=== PATIENT | female | born 1995 | race African-American/Black ===

== ENCOUNTER 2017-06-08 03:11 | Emergency (ER) | payer OTHER ==
[2017-06-08 04:50] LABS: ADD MAN DIFF? NO
[2017-06-08 04:52] LABS: WHITE BLOOD COUNT 6.5 10^3/ul (4.8-10.8)
[2017-06-08 04:52] LABS: BASOPHIL # 0.1 10^3/ul (0.0-0.1); BASOPHILS % 0.9 % (0.0-2.0); EOSINOPHILS # 0.2 10^3/ul (0.0-0.5); EOSINOPHILS % 2.9 % (0.0-7.0); HEMATOCRIT 32.5 % (37.0-47.0); HEMOGLOBIN 11.1 g/dl (12.0-16.0); LYMPHOCYTES # 0.8 10^3/ul (0.8-2.9); LYMPHOCYTES % 12.7 % (18.0-55.0); MEAN CORPUSCULAR HEMOGLOBIN 26.5 pg (29.0-33.0); MEAN CORPUSCULAR HGB CONC 34.2 g/dl (32.0-37.0); MEAN CORPUSCULAR VOLUME 77.6 fl (72.0-104.0); MEAN PLATELET VOLUME 12.4 fl (7.4-10.4); MONOCYTE # 0.5 10^3/ul (0.3-0.9); MONOCYTES % 7.8 % (0.0-13.0); NEUTROPHIL # 4.9 10^3/ul (1.6-7.5); NEUTROPHILS % 75.4 % (30.0-74.0); PLATELET COUNT 239 10^3/UL (140-415); RED BLOOD COUNT 4.19 10^6/ul (4.20-5.40); RED CELL DISTRIBUTION WIDTH 14.9 % (11.5-14.5)
[2017-06-08] MEDS: HYDROmorphONE 0.5 MG/0.5 ML SYG IV (04:52)
[2017-06-08] MEDS: LEVETIRACETAM 1000 MG (PMX) 100 ML IVPB (04:52)
[2017-06-08] MEDS: ONDANSETRON 4 MG INJ IV (04:52)
[2017-06-08 05:14] LABS: ANION GAP 15 (8-16); BLOOD UREA NITROGEN 5 mg/dl (7-20); CALCIUM 9.3 mg/dl (8.4-10.2); CARBON DIOXIDE 25 mmol/L (21-31); CHLORIDE 108 mmol/L (97-110); CREATININE 0.69 mg/dl (0.44-1.00); GLUCOSE 91 mg/dl (70-220); POTASSIUM 3.1 mmol/L (3.5-5.1); SODIUM 145 mmol/L (135-144)
== END 2017-06-08 06:25 | disposition home or self-care (01) ==
LOC: E/R 03:11
DX: R56.9 Unspecified convulsions (principal); R40.2142 Coma scale, eyes open, spontaneous, at arrival to emergency department; J20.9 Acute bronchitis, unspecified; R40.2252 Coma scale, best verbal response, oriented, at arrival to emergency department; R40.2362 Coma scale, best motor response, obeys commands, at arrival to emergency department
CPT/HCPCS: 36415; 70450; 80048; 81025; 85025; 93005; 96374; 96375; 99285-25